=== PATIENT | female | born 1975 | race Two or more races ===

== ENCOUNTER 2020-05-17 17:55 | Emergency (ER) | payer OTHER ==
--- NOTE | 2020-05-17 18:15 | NUR ---
CALLED TO TRIAGE,NO ANSWER
--- NOTE | 2020-05-17 18:41 | NUR ---
CALLED TO TRIAGE NO ANSWER
== END 2020-05-17 18:43 | disposition left against medical advice (07) ==
LOC: ER 18:01
DX: Z53.21 Procedure and treatment not carried out due to patient leaving prior to being seen by health care provider (principal)